=== PATIENT | male | born 1955 | race Caucasian/White ===

== ENCOUNTER 2017-09-19 11:50 | Emergency (ER) | payer OTHER ==
[~2017-09-19] VITALS: Ht 185.4 cm; Wt 113.4 kg
--- NOTE | 2017-09-19 12:53 | ED GENERAL ADULT ---
History of Present Illness General Chief Complaint: General Adult Stated Complaint: R SIDE FACIAL SWELLING Source: patient Exam Limitations: no limitations Vital Signs & Intake/Output Vital Signs & Intake/Output Vital Signs Date Time Temp Pulse Resp B/P B/P Pulse O2 O2 Flow FiO2 Mean Ox Delivery Rate 09/19 1442 97.5 78 18 145/84 99 Room Air 09/19 1215 146/76 09/19 1158 97.0 78 16 98 Room Air Allergies Coded Allergies: No Known Allergies (09/19/17) Triage Note: 62M HAD DENTAL PROCEDURE YESTERDAY WITH CAVITY FILLING, PT BLEW HIS NOSE AND FELT THE ENTIRE CHEEK FILL UP. CALLED DENTIST WHO REFERRED HIM TO ED FOR EVALUATION. PAIN 05/06 HAS NOT TAKEN ANYTHING FOR PAIN. [employer] INVOLVEMENT, MANAGES OWN SECRETIONS Triage Nurses Notes Reviewed? yes Onset: Abrupt Duration: day(s): (1) Timing: no prior history Injury Environment: home Severity: moderate Severity Numbers: 7 No Modifying Factors: none HPI: Patient is a 62-year-old male with history of melanoma, has been in remission for the past 20 years presenting to the emergency department with chief complaint of right-sided neck and cheek swelling that started suddenly yesterday after he had a cavity filled. Patient was that he went in to get a cavity filled was doing great, reports that the workup was extensive and took a little bit longer than it usually does but was feeling fine. Went home and blew his nose and his right cheek blew up. Patient (symptoms are worse today than they were yesterday. He saw his dentist and he advised the patient to complete (Vannessa Briscoe) Past History Travel History Traveled to [place] past 21 day No Medical History Any Pertinent Medical History? see below for history Cancer(s): melanoma Surgical History Surgical History: non-contributory Psychosocial History What is your primary language Italian Tobacco Use: Never used Family History Hx Contributory? No (Vannessa Briscoe) Review of Systems Review of Systems Constitutional: Reports: no symptoms. Comments Review of systems: See HPI, All other systems negative. Constitutional, no chills fever or weight loss HEENT: No visual changes no sore throat no congestion Cardiovascular: No chest pain ,palpitation , orthopnea or ankle swelling Skin, no jaundice no rashes Respiratory: No dyspnea cough sputum or hemoptysis GI: No nausea no vomiting : No dysuria No hematuria Muscle skeletal: no back pain, no neck pain, Neurologic: No numbness no confusion Psych: No stress anxiety or depression,. Heme/endocrine: No bruising no bleeding no polyuria or polydipsia Immunology: No splenectomy or history of AIDS (Vannessa Briscoe) Physical Exam Physical Exam General Appearance: well developed/nourished, no apparent distress, alert, awake , comfortable Comments: Well-developed well-nourished person in no acute distress HEENT: extraocular motion intact, no nystagmus. Pupils equally round and reactive to light and accommodation. Nose is atraumatic. External auditory canal and Tympanic membranes clear. Pharynx normal. No swelling or edema. Moderate edema noted of the right maxillary sinus that extends into the preauricular area. No hemotympanum. No crepitus palpated over this area although patient does report that he can hear "[employer]ice [employer]" with palpation. Mild erythema noted around the gumline of the right posterior molars, inferior aspect. Neck: Moderate edema appreciated of the right lateral neck extending and to the preauricular area, edema also extends into the maxillary space of the right maxillary sinus. Mildly tender to palpation. Cardiovascular: Regular rate and rhythms no murmurs rubs or gallops, normal JVP Respiratory: Chest nontender. No respiratory distress.breath sounds clear to auscultation bilaterally Extremity: No edema Neuro: Alert oriented x3, motor sensory normal, cranial nerves II through XII grossly intact. Skin: No appreciable rash on exposed skin, skin is warm and dry. Psych: Mood and affect is normal, memory and judgment is normal. Core Measures ACS in differential dx? No CVA/TIA Diagnosis: No Sepsis Present: No Sepsis Focused Exam Completed? No (Vannessa Briscoe) Progress Differential Diagnoses I considered the following diagnoses in my evaluation of the patient: Abscess, periodontal abscess, necrotizing fasciitis, blown sinus, sinusitis Plan of Care: Orders Procedure Date/time Status BLOOD CULTURE 09/19 1408 Active COMPREHENSIVE METABOLIC PANEL 09/19 1249 Complete CBC WITHOUT DIFFERENTIAL 09/19 1249 Complete Laboratory Tests 09/19/17 1300: Anion Gap 13, Estimated GFR > 60, BUN/Creatinine Ratio 24.0, Glucose 96, Calcium 9.7, Total Bilirubin 0.7, AST 19, ALT 33, Alkaline Phosphatase 72, Total Protein 7.1, Albumin 4.7, Globulin 2.4, Albumin/Globulin Ratio 2.0, CBC w Diff NO MAN DIFF REQ, RBC 4.93, MCV 90.8, MCH 31.6 H, MCHC 34.8, RDW 12.8, MPV 8.1, Gran % 77.6 H, Lymphocytes % 14.2 L, Monocytes % 7.4, Eosinophils % 0.6, Basophils % 0.2, Absolute Granulocytes 7.8 H, Absolute Lymphocytes 1.4, Absolute Monocytes 0.7 H, Absolute Eosinophils 0.1, Absolute Basophils 0 Microbiology 09/19 1445 BLOOD: Blood Culture - RECD 09/19 1438 BLOOD: Blood Culture - RECD Diagnostic Imaging: Viewed by Me: CT Scan. Discussed w/RAD: CT Scan. Radiology Impression: PATIENT: ANN SEGOVIA PRESENT AGE: 62 PATIENT ACCOUNT NO: [id number] : 53 LOCATION: [facility] [place] ORDERING PHYSICIAN: Vannessa DICKEY SERVICE DATE: 09/19/17 EXAM TYPE: CAT - CT NECK W IV CONTRAST EXAMINATION: CT NECK WITH CONTRAST CLINICAL INFORMATION: Swelling status post dental work, rule out mass/abscess. COMPARISON: There are no prior studies for comparison. TECHNIQUE: Axial images through the neck from the facial recess into the supraclavicular region following administration of IV contrast, 95 mL of Optiray 320. DLP: 611.06 mGy-cm FINDINGS: Gas is present within the soft tissues in the right neck region dissecting from the subcutaneous soft tissues of the lateral aspect of the mandible deep into the lateral pharyngeal space. The gas is present on both external and internal margins of the right mandible body and proximal portion of the ramus, and extends posteriorly into the margin of the right parotid gland. The gas is also tracking into the upper facial region medially adjacent to the right lateral pterygoid plate and superior to the level of the lateral orbital wall.. Inferiorly the gas is dissecting medially along the anterior margin of the sternocleidomastoid to the level of the thoracic inlet. No loculated or drainable fluid collection is noted, with no apparent abscess formation. A a few small cervical lymph nodes are present which are not pathologically enlarged likely mildly reactive lymph nodes less than 1 cm in short axis dimension. IMPRESSION: 1.Extensive gaseous dissection throughout the soft tissues of the right neck from the level of the lateral right orbital wall to the right thoracic inlet. The findings are concerning for infection with gas producing bacteria. 2. No drainable loculated fluid collection is identified at this time. The findings were discussed directly with the referring physician, Dr. Vannessa Arellano, on 09/19/2017 at 14:08. DICTATED BY: Spring Alcantar MD DATE/TIME DICTATED:09/19/171352 LAUNDRY TECHNICIAN:KATE DATE/TIME TRANSCRIBED:1352 CONFIDENTIAL, DO NOT COPY WITHOUT APPROPRIATE AUTHORIZATION. < Electronically signed in Other Vendor System> SIGNED BY: Spring Alcantar MD 09/19/17 1412 Initial ED EKG: none Comments: Spoke with - we will be transferring patient over to outside facility for evaluation of the gaseous distention into the right maxillary sinus and into the right lateral neck. Patient is afebrile, nontoxic and no white count. Spoke with 's reveals a slightly blown sinus. PT INFORMED OF ALL IMAGING RESULTS. PT NON-TOXIC. PT RECEIVE PORPHYLACTIC DOSE OF CLEOCIN. (Vannessa Briscoe) Departure Departure Time of Disposition: 1446 Disposition: OTHER GENERAL HOSPITAL (ACUTE) Condition: Stable Clinical Impression Primary Impression: Neck swelling Referrals: Lizzette Campbell MD (PCP/Family) Departure Forms: Customer Survey General Discharge Information (Vannessa Briscoe) PA/IMPLEMENTATION COORDINATOR Co-Sign Statement Statement: ED Attending supervision documentation- [X] I saw and evaluated the patient. I have also reviewed all the pertinent lab results and diagnostic results. I agree with the findings and the plan of care as documented in the PA's/IMPLEMENTATION COORDINATOR's documentation. [X] I have reviewed the ED Record and agree with the PA's/IMPLEMENTATION COORDINATOR's documentation. [] Additions or exceptions (if any) to the PAs/IMPLEMENTATION COORDINATOR's note and plan are summarized below: [] (Jennifer SNELL,Kellee) Critical Care Note Critical Care Note Critical Care Time: 30-74 min (Vannessa Briscoe) [X] I saw and evaluated the patient. I have also reviewed all the pertinent lab results and diagnostic results. I agree with the findings and the plan of care as documented in the PA's/IMPLEMENTATION COORDINATOR's documentation. [X] I have reviewed the ED Record and agree with the PA's/IMPLEMENTATION COORDINATOR's documentation. [] Additions or exceptions (if any) to the PAs/IMPLEMENTATION COORDINATOR's note and plan are summarized below: [] (Jennifer SNELL,Kellee) Critical Care Note Critical Care Note Critical Care Time: 30-74 min (Eileen DICKEY,Vannessa)
[2017-09-19 13:05] LABS: ABSOLUTE BASOPHIL COUNT 0 /CUMM (0.0-0.2); ABSOLUTE EOSINOPHIL COUNT 0.1 /CUMM (0.0-0.7); ABSOLUTE GRANULOCYTE CT 7.8 /CUMM (1.4-6.5); ABSOLUTE LYMPH COUNT 1.4 /CUMM (1.2-3.4); ABSOLUTE MONOCYTE COUNT 0.7 /CUMM (0.10-0.60); BASOPHIL % 0.2 % (0.0-2.0); EOSINOPHIL % 0.6 % (0-5); GRANULOCYTE % 77.6 % (42.2-75.2); HEMATOCRIT 44.8 % (42-52); MEAN CORPUSCULAR HGB 31.6 PG (27.0-31.0); MEAN CORPUSCULAR HGB CONC 34.8 G/DL (33.0-37.0); MEAN CORPUSCULAR VOLUME 90.8 FL (80.0-94.0); MEAN PLATELET VOLUME 8.1 FL (7.4-10.4); PLATELET COUNT 177 /CUMM (130-400); RBC DISTRIBUTION WIDTH 12.8 % (11.5-14.5); RED BLOOD CELL CT 4.93 /CUMM (4.70-6.10); WHITE BLOOD CELL COUNT 10.1 /CUMM (4.8-10.8)
--- NOTE | 2017-09-19 14:12 | CT SCAN REPORT ---
EXAMINATION: CT NECK WITH CONTRAST CLINICAL INFORMATION: Swelling status post dental work, rule out mass/abscess. COMPARISON: There are no prior studies for comparison. TECHNIQUE: Axial images through the neck from the facial recess into the supraclavicular region following administration of IV contrast, 95 mL of Optiray 320. DLP: 611.06 mGy-cm FINDINGS: Gas is present within the soft tissues in the right neck region dissecting from the subcutaneous soft tissues of the lateral aspect of the mandible deep into the lateral pharyngeal space. The gas is present on both external and internal margins of the right mandible body and proximal portion of the ramus, and extends posteriorly into the margin of the right parotid gland. The gas is also tracking into the upper facial region medially adjacent to the right lateral pterygoid plate and superior to the level of the lateral orbital wall.. Inferiorly the gas is dissecting medially along the anterior margin of the sternocleidomastoid to the level of the thoracic inlet. No loculated or drainable fluid collection is noted, with no apparent abscess formation. A a few small cervical lymph nodes are present which are not pathologically enlarged likely mildly reactive lymph nodes less than 1 cm in short axis dimension. IMPRESSION: 1.Extensive gaseous dissection throughout the soft tissues of the right neck from the level of the lateral right orbital wall to the right thoracic inlet. The findings are concerning for infection with gas producing bacteria. 2. No drainable loculated fluid collection is identified at this time. The findings were discussed directly with the referring physician, Dr. Vannessa Arellano, on 09/19/2017 at 14:08.
[2017-09-19 14:42] VITALS: BP 145/84
== END 2017-09-19 15:12 | disposition short-term general hospital (02) ==
LOC: ERH 11:50
PROVIDERS: Physician Assistant
DX: R22.1 Localized swelling, mass and lump, neck (principal)
CPT/HCPCS: 87040; 96374